=== PATIENT | female | born 1970 | race Caucasian/White ===

== ENCOUNTER 2020-12-15 08:20 | Outpatient (CLI) | payer OTHER, SELFPAY ==
[2020-12-15 09:26] LABS: Hematocrit 38.1 % (37.0-47.0); Hemoglobin 12.2 g/dL (12.0-15.0); Mean Corpuscular Hemoglobin 29.4 pg (26-34); Mean Corpuscular Volume 91.8 fl (80-100); Mean Platelet Volume 9.3 fl (7.4-10.4); Platelet Count Result 217 k/mm3 (150-375); Red Blood Count 4.15 M/mm3 (4.2-5.4); Red Cell Distribution Width 13.9 % (11.5-14.5); White Blood Count 5.2 K/mm3 (4.5-10.0)
[2020-12-15 09:40] LABS: Anion Gap 7 mmol/L (8-16); Blood Urea Nitrogen 11 mg/dL (7-17); Carbon Dioxide 26 mmol/L (22-30); Chloride 103 mmol/L (98-107); Cholesterol 168 mg/dL (0-200); Estimated Glomerular Filt Rate > 60; Glucose 81 mg/dL (65-110); HDL Direct 57 mg/dL; Potassium 4.4 mmol/L (3.4-5.0); Sodium 136 mmol/L (137-145); Triglycerides 73 mg/dL (<150)
[2020-12-15 09:50] LABS: LDL Cholesterol Direct 88 mg/dL
== END 2020-12-15 08:21 | disposition home or self-care (01) ==
PROVIDERS: PCP Family Medicine; Visit Provider Nurse Practitioner Family
DX: N92.0 Excessive and frequent menstruation with regular cycle (principal); Z13.220 Encounter for screening for lipoid disorders; Z13.29 Encounter for screening for other suspected endocrine disorder
CPT/HCPCS: 36415; 80048; 80061; 84443; 85027

== ENCOUNTER 2020-12-23 17:38 | Outpatient (CLI) | payer OTHER, SELFPAY ==
--- NOTE | ~2020-12-23 | MM_ITS ---
EXAMINATION: MM screening flavio BI w jatinder HISTORY: Screening TECHNIQUE: Craniocaudal and mediolateral oblique 3-D tomosynthesis images were obtained and synthetic 2-D images were generated. CAD analysis was submitted and interpreted. COMPARISON: 03/06/2012 BREAST PARENCHYMAL COMPOSITION: The breasts are heterogeneously dense, which may obscure small masses . FINDINGS: There is no evidence of suspicious mass, calcification, or architectural distortion to sugg est malignancy in either breast. There has been no suspicious interval change. IMPRESSION: 1. No mammographic evidence of malignancy. 2. Recommend routine screening mammography in one year. BI-RADS Category 1: Negative Reviewed, dictated and finalized at location A.
== END 2020-12-23 17:39 | disposition home or self-care (01) ==
LOC: ANHIMG 17:40
PROVIDERS: PCP Family Medicine; Visit Provider Nurse Practitioner Family
DX: Z12.31 Encounter for screening mammogram for malignant neoplasm of breast (principal)
CPT/HCPCS: 77063; 77067

== ENCOUNTER 2022-08-03 17:10 | Outpatient (CLI) | payer OTHER, SELFPAY ==
--- NOTE | ~2022-08-03 | MM_ITS ---
EXAMINATION: MM screening flavio BI w jatinder HISTORY: Screening TECHNIQUE: Craniocaudal and mediolateral oblique 3-D tomosynthesis images were obtained and synthetic 2-D images were generated. CAD analysis was submitted and interpreted. COMPARISON: 12/23/2020 BREAST PARENCHYMAL COMPOSITION: The breasts are heterogeneously dense, which may obscure small masses . FINDINGS: There is no evidence of suspicious mass, calcification, or architectural distortion to sugg est malignancy in either breast. There has been no suspicious interval change. IMPRESSION: 1. No mammographic evidence of malignancy. 2. Recommend routine screening mammography in one year. BI-RADS Category 1: Negative Reviewed, dictated and finalized at location A.
== END 2022-08-03 17:11 | disposition home or self-care (01) ==
LOC: ANHIMG 17:12
PROVIDERS: PCP Family Medicine; Visit Provider Physician Assistant Medical
DX: Z12.31 Encounter for screening mammogram for malignant neoplasm of breast (principal)
CPT/HCPCS: 77063; 77067

== ENCOUNTER 2023-08-17 10:21 | Outpatient (CLI) | payer OTHER, SELFPAY ==
--- NOTE | ~2023-08-17 | XR_ITS ---
XR lumbar spine 2-3V DATE: 08/17/2023 10:39 INDICATION: Low back pain; recent back strain TECHNIQUE: AP, lateral and coned lateral lumbosacral views COMPARISON: None FINDINGS: There is mild thoracolumbar dextroscoliosis. Normal alignment of the lumbar spine. No fracture or bone destruction or spondylolisthesis. There is minimal degenerative spurring. Lumbar levels interspaces appear well preserved. No spondylolisthesis of the lumbar pedicles are intact. The sacroiliac joints are unremarkable.. IMPRESSION: Minimal degenerative spurring Mild thoracolumbar dextroscoliosis Reviewed, dictated and finalized at location B.
== END 2023-08-17 10:22 | disposition home or self-care (01) ==
PROVIDERS: PCP Family Medicine; Visit Provider Nurse Practitioner Adult Health
DX: M54.50 Low back pain, unspecified (principal)
CPT/HCPCS: 72100

== ENCOUNTER 2023-10-11 11:00 | Outpatient (RCR) | payer OTHER, SELFPAY ==
--- NOTE | 2023-09-13 09:59 | OPREHPOC ---
Outpatient Therapy Plan of Care This is a Multidisciplinary Plan of Care that may contain components documented by all disciplines (PT, OT, and ST.) PT Problem 1 PT Problem #1 Knowledge Deficit PT Goal 1 Goal Stoddard with HEP Target Visit 4 PT Problem 2 PT Problem #2 Impaired Range of Motion PT Goal 1 Goal Demonstrate -15 degrees seamus with Hamstring 90/90 measure for reduced pull in posterior kinematic chain Target Visit 8 PT Goal 2 Goal Demonstrate minimal restriction in piriformis restriction bilaterally Target Visit 8 PT Problem 3 PT Problem #3 Impaired Strength PT Goal 1 Goal Improve seamus hip abduction strength to 4+/5 to improve lumbopelvic stability with ADLs Target Visit 8
--- NOTE | 2023-09-13 09:59 | PTOPEVAL1 ---
Assessment and note entered by Juwan Hogan, PT Evaluation Information Assessment Status Evaluation Diagnosis Low back pain, Lumbar radiculopathy Onset July 2023 Subjective Information Reports that she has orthotics that she typically wears but she was not wearing them for about 2 months. NSAIDs have helped in the past but she is really struggling right now. She had trouble putting weight on her legs. She did a round of prednisone. 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 When the prednisone wore off she noted increased pain once again. Turning and sit to stand caused her a lot of pain. She is more painful with increased activity, mornings are not. She is getting pain down both legs at this time that rarely goes to her feet. Pain is equal bilaterally. Reported Pain Level Pain Score 2: Self Report Assessment PT Clinical Summary Patient presents with signs and symptoms consistent with lumbar stenotic/extension based pain. Patient demonstrates poor hip mobility, lateral stabilization, and core stabilization. Will benefit from skilled therapy to address these deficits for pain reduction and functional mobility improvement. Plan of Care Interventions Electrical Stimulation,Hot Pack/Cold Pack,Manual Therapy,Mechanical Traction,Neuro Re-education, Therapeutic Activities,Therapeutic Exercise PT Services Indicated Yes Treatment Frequency and 2x/week for 8 visits Duration These treatments will address the objective and functional deficits as defined above. The patient will be advanced safely and appropriately in order for the patient to progress towards his/her prior level of function. Additional exercises will be introduced and as well as a comprehensive home exercise program upon discharge, if needed, ?to ensure carryover of functional gains achieved in the clinic. This treatment plan has been reviewed and agreement upon by the patient.
--- NOTE | 2023-10-11 11:52 | OPREHPOC ---
Outpatient Therapy Plan of Care This is a Multidisciplinary Plan of Care that may contain components documented by all disciplines (PT, OT, and ST.) PT Problem 1 PT Problem #1 Knowledge Deficit PT Goal 1 Goal Caroline with HEP Target Visit 4 Progress Met PT Problem 2 PT Problem #2 Impaired Range of Motion PT Goal 1 Goal Demonstrate -15 degrees seamus with Hamstring 90/90 measure for reduced pull in posterior kinematic chain Target Visit 8 Progress Met PT Goal 2 Goal Demonstrate minimal restriction in piriformis restriction bilaterally Target Visit 8 Progress Met PT Problem 3 PT Problem #3 Impaired Strength PT Goal 1 Goal Improve seamus hip abduction strength to 4+/5 to improve lumbopelvic stability with ADLs Target Visit 8 Progress Met
--- NOTE | 2023-10-11 11:52 | PTOPDC ---
Assessment and note entered by Juwan Hogan, PT Evaluation Information Assessment Status Discharge Diagnosis Low back pain, Lumbar radiculopathy Onset July 2023 Subjective Information Patient reports that she is feeling significantly better with pain and has a better understanding of hip disassociation and hip stabilization. Reports that she has no concerns with HEP. Plans to continue independently. Reported Pain Level Pain Score 0: Self Report Assessment PT Clinical Summary Patient met all goals for therapy and is suitable for discharge to [facility] at this time. Plan of Care PT Services Indicated D/C to [facility]
== END 2023-10-11 14:59 | disposition home or self-care (01) ==
LOC: ANHPT 11:00
PROVIDERS: PCP Family Medicine; Visit Provider Physician Assistant
DX: M54.50 Low back pain, unspecified (principal); M54.10 Radiculopathy, site unspecified
CPT/HCPCS: 97110; 97140; 97161; 97530

== ENCOUNTER 2024-02-19 09:39 | Outpatient (CLI) | payer OTHER, SELFPAY ==
--- NOTE | ~2024-02-19 | MR_ITS ---
MRI of the lumbar spine Clinical History: Radiculopathy Technique: Axial T2-weighted images, and sagittal T1-weighted, T2-weighted, and T2 fat-sat images wer e acquired. Findings: No fracture. Suggestion of minimal grade 1 anterolisthesis of L3 over L4. No bone marrow si gnal abnormality seen. At L1-L2 and L2-L3, there is no disc bulge or herniation. There are mild to moderate facet joint hype rtrophic changes at these levels. No spinal canal stenosis or neural foraminal narrowing at these lev els. At L3-L4, there is mild degenerative disc 9. There is diffuse disc bulge with severe facet arthropath y present. There is associated 1 cm left synovial cyst. These factors result in severe spinal canal s tenosis/thecal sac compression at this level. Neural foramina are preserved. At L4-L5, there is diffuse disc bulge with mild to moderate facet arthropathy. No central canal steno sis. There is moderate right neural foraminal narrowing. Left neural foramen preserved. At L5-S1, there is mild diffuse disc bulge and mild facet arthropathy. No central canal stenosis or d efinite neural foraminal narrowing. Paravertebral soft tissues are unremarkable. Impression: Advanced degenerative spondylosis at L3-L4, with associated 1 cm left synovial cyst at this level, re sulting in severe spinal canal stenosis/thecal sac compression. Please see details above. Additional mild degenerative changes overall, as above. Reviewed, dictated and finalized at [facility]. Impression: Advanced degenerative spondylosis at L3-L4, with associated 1 cm left synovial cyst at this level, resulting in severe spinal canal stenosis/thecal sac compre ssion. Please see details above. Additional mild degenerative changes overall, as above.
== END 2024-02-19 09:40 | disposition home or self-care (01) ==
PROVIDERS: PCP Family Medicine; Visit Provider Nurse Practitioner Adult Health
DX: M47.26 Other spondylosis with radiculopathy, lumbar region (principal); M51.369 Other intervertebral disc degeneration, lumbar region without mention of lumbar back pain or lower extremity pain
CPT/HCPCS: 72148

== ENCOUNTER 2024-04-08 08:35 | Outpatient (CLI) | payer OTHER, SELFPAY ==
[2024-04-08 08:50] LABS: Basophils Absolute Auto 0.1 K/mm3 (0.0-0.1); Basophils Percent Auto 1.6 % (0.2-1.2); Eosinophils Absolute Auto 0.1 K/mm3 (0-0.3); Eosinophils Percent Auto 3.8 % (0-4.4); Hematocrit 42.5 % (37.0-47.0); Hemoglobin 13.9 g/dL (12.0-15.0); Immature Granulocyte Absolute 0.01 K/mm3 (0.00-0.031); Immature Granulocyte Percent A 0.3 % (0-0.5); Lymphocytes Absolute Auto 1.27 K/mm3 (0.9-3.2); Lymphocytes Percent Auto 34.9 % (18.3-44.2); Mean Corpuscular HGB Conc 32.7 g/dl (32-36); Mean Corpuscular Hemoglobin 31.9 pg (26-34); Mean Corpuscular Volume 97.5 fl (80-100); Mean Platelet Volume 9.2 fl (7.4-10.4); Monocytes Absolute Auto 0.3 K/mm3 (0.1-0.6); Monocytes Percent Auto 9.3 % (2.6-8.5); Neutrophils Absolute Auto 1.8 K/mm3 (1.3-6.7); Neutrophils Percent Auto 50.1 % (45.5-73.1); Platelet Count Result 216 k/mm3 (150-375); Red Blood Count 4.36 M/mm3 (4.2-5.4); White Blood Count 3.6 K/mm3 (4.5-10.0)
[2024-04-08 09:12] LABS: Alanine Aminotransferase 17 U/L (6-35); Albumin Level 4.3 g/dL (3.5-5.1); Alkaline Phosphatase 47 U/L (38-126); Anion Gap 4 mmol/L (4-12); Aspartate Amino Transferase 26 U/L (14-36); Bilirubin,Total 0.7 mg/dL (0.2-1.3); Blood Urea Nitrogen 16 mg/dL (7-17); Calcium 9.1 mg/dL (8.4-10.2); Carbon Dioxide 30 mmol/L (22-30); Chloride 105 mmol/L (98-107); Cholesterol 195 mg/dL (0-200); Estimated Glomerular Filt Rate > 60; Glucose 84 mg/dL (65-110); HDL Direct 63 mg/dL; Potassium 4.6 mmol/L (3.4-5.0); Sodium 139 mmol/L (137-145); Triglycerides 74 mg/dL (<150)
[2024-04-08 09:30] LABS: LDL Cholesterol Direct 90 mg/dL
== END 2024-04-08 08:36 | disposition home or self-care (01) ==
PROVIDERS: PCP Family Medicine; Visit Provider Nurse Practitioner Adult Health
DX: M51.16 Intervertebral disc disorders with radiculopathy, lumbar region (principal); Z00.00 Encounter for general adult medical examination without abnormal findings; Z13.29 Encounter for screening for other suspected endocrine disorder
CPT/HCPCS: 36415; 80053; 80061; 84443; 85025

== ENCOUNTER 2024-12-30 15:05 | Outpatient (CLI) | payer OTHER, SELFPAY ==
--- NOTE | ~2024-12-30 | MM_ITS ---
EXAMINATION: MM screening flavio BI w jatinder HISTORY: Screening mammogram TECHNIQUE: Craniocaudal and mediolateral oblique 3-D tomosynthesis images were obtained and synthetic 2-D images were generated. CAD analysis was submitted and interpreted. COMPARISON: 08/03/2022, 12/23/2020 BREAST PARENCHYMAL COMPOSITION:Not Dense. There are scattered areas of fibroglandular density. FINDINGS: No suspicious mass, calcification, or architectural distortion are identified in either breast to suggest malignancy. There has been no suspicious interval change. IMPRESSION: No mammographic evidence of malignancy. Recommend routine screening mammography in one year. BI-RADS Category 1: Negative Reviewed, dictated and finalized at location .
== END 2024-12-30 15:06 | disposition home or self-care (01) ==
LOC: ANHFOHIMG 15:07
PROVIDERS: PCP Family Medicine; Visit Provider Family Medicine
DX: Z12.31 Encounter for screening mammogram for malignant neoplasm of breast (principal)
CPT/HCPCS: 77063; 77067

== ENCOUNTER 2025-03-13 12:02 | Outpatient (CLI) | payer OTHER, SELFPAY ==
--- NOTE | ~2025-03-13 | CT_ITS ---
EXAMINATION: CT lumbar spine wo con DATE: 03/13/2025 12:24 INDICATION: Lumbar synovial cyst. TECHNIQUE: Computed tomography (CT) of the lumbar spine was performed without intravenous contrast. Automated exposure control and iterative reconstruction technique were employed. The dose-length product was 756.57 mGy-cm. COMPARISON: Lumbar spine MRI 02/19/2024 FINDINGS: There is 3 mm anterolisthesis of L3 on L4. There is 6 degrees levocurvature of lumbar spine. There is mild chronic anterior wedging of T11 vertebral body. There is mildly decreased disc height at L3-L4, severely decreased disc height at L4-L5, and mildly decreased disc height at L5-S1. The following disc levels are specifically discussed: L1-L2: The disc does not extend beyond the endplate margin. There is moderate bilateral facet joint osteoarthritis. There is no neural foraminal stenosis. There is no central canal stenosis. L2-L3: The disc is bulging. There is severe bilateral facet joint osteoarthritis. There is mild bilateral neural foraminal stenosis. There is mild central canal stenosis. L3-L4: The disc is bulging. There is severe bilateral facet joint osteoarthritis. There is a synovial cyst from left facet joint in the epidural space. There is mild bilateral neural foraminal stenosis. There is moderate central canal stenosis. L4-L5: The disc is bulging. There is severe bilateral facet joint osteoarthritis. There is mild bilateral neural foraminal stenosis. There is mild central canal stenosis. L5-S1: The disc is bulging. There is severe bilateral facet joint osteoarthritis. There is mild bilateral neural foraminal stenosis. There is mild central canal stenosis. IMPRESSION: 1. Severe lumbar spondylosis, stable from 02/19/2024. Reviewed, dictated and finalized at location E.
== END 2025-03-13 12:03 | disposition home or self-care (01) ==
LOC: ANHIMG 12:03
PROVIDERS: PCP Family Medicine
DX: M47.816 Spondylosis without myelopathy or radiculopathy, lumbar region (principal); M71.38 Other bursal cyst, other site
CPT/HCPCS: 72131

== ENCOUNTER 2025-04-03 10:03 | Outpatient (CLI) | payer OTHER, SELFPAY ==
--- OUTSIDE RECORDS SUMMARY | 2025-04-03 10:06 | XMS_ITS | Clinical Summary ---
Author Organization [facility] A Address [address] [place] [address] Care Team Providers Care Grommet Worker Name Role Phone Sj Gr MD Primary Care Provider + [phone] Allergies No known active allergies Medications meloxicam (MOBIC) 15 mg tablet Take 1 tablet (15 mg total) by mouth daily 09/16/2024 Active predniSONE (DELTASONE) 10 mg tablet TAKE 3 TABLETS BY MOUTH DAILY FOR 5 DAYS 09/19/2024 Active ibuprofen (ADVIL,MOTRIN) 800 mg tablet Take 1 tablet (800 mg total) by mouth daily as needed for pain Active Active Problems No known active problems Encounters Date Type Department Care Team Description 03/27/2025 Telephone [facility] [place] [address], [address] [place] [address] Tisha Espino RN PMC Intake Assessment 03/25/2025 2:40 PM POWER CUTTING MACHINE OPERATOR Office Visit [facility] Medicine Neurosurgery [address] [place] [address] 4 [address] [place] [address] Cedric Corley MD Synovial cyst of lumbar spine (Primary Dx) 03/25/2025 Orders Only [facility] Medicine Neurosurgery [address] [place] [address] 4 [address] [place] [address] Cedric Corley MD Synovial cyst of lumbar spine (Primary Dx) 03/24/2025 9:26 AM POWER CUTTING MACHINE OPERATOR - 03/24/2025 11:59 PM POWER CUTTING MACHINE OPERATOR Hospital Encounter [facility] [address] [place] [address] Discharge Disposition: Discharge to home or self care 03/09/2025 2:30 PM CDT Office Visit [facility] [address] [place] [address] Hermes Hannah PA Synovial cyst of lumbar spine (Primary Dx) 02/09/2025 Telephone [facility] Radiology [address] [place] [address] Chloe James RN 01/20/2025 Telephone Radiology [address] [place] [address] Tong Calloway MD 01/19/2025 10:30 AM CDT Office Visit [facility] [address] [place] [address] Hermes Hannah PA Synovial cyst of lumbar spine (Primary Dx) 01/19/2025 9:42 AM CDT - 01/19/2025 11:59 PM CDT Hospital Encounter [facility] - Imaging [address] [place] [id number] Low back pain, unspecified back pain laterality, unspecified chronicity, unspecified whether sciatica present Discharge Disposition: Discharge to home or self care from Last 3 Months Surgical History Surgery Date Site/Laterality Comments OTHER SURGICAL HISTORY 05/14/1988 - 05/13/1989 Right right ACL repair Family History Medical History Relation Name Comments Diabetes Father Diabetes Maternal Grandmother Relation Name Status Comments Father Maternal Grandmother Social History Tobacco Use Types Packs/Day Years Used Date Smoking Tobacco: Never Smokeless Tobacco: Never Tobacco Cessation:Counseling Given: No Alcohol Use Standard Drinks/Week Comments Never 0 (1 standard drink = 0.6 oz pur e alcohol) AUDIT-C Answer Date Recorded Q1: How often do you have a drink containing alcohol? Never 01/19/2025 Q2: How many drinks containi ng alcohol do you have on a typical day when you are drinking? Patient does not drink Q3: How often do you have si x or more drinks on one occasion? Never 01/19/2025 Comments Unknown Sex and Gender Information Value Date Recorded Sex Assigned at Not on file Legal Sex Female 10:55 AM POWER CUTTING MACHINE OPERATOR Gender Identity Not on file Sexual Orientation Not on file Last Filed Vital Signs Vital Sign Reading Time Taken Comments Blood Pressure 106/58 03/09/2025 2:26 PM CDT Pulse 86 03/09/2025 2:26 PM CDT Temperature - - Respiratory Rate - - Oxygen Saturation 98% 03/09/2025 2:26 PM CDT Inhaled Oxygen Concentration - - Weight 74.4 kg (164 lb) 03/25/2025 3:08 PM POWER CUTTING MACHINE OPERATOR Height 172.7 cm (5' 8) 03/25/2025 3:08 PM POWER CUTTING MACHINE OPERATOR Body Mass Index 24.94 03/25/2025 3:08 PM POWER CUTTING MACHINE OPERATOR Plan of Treatment Health Maintenance Due Date Last Done Comments Breast Cancer Screening-Mammogram 1970 Cervical Cancer Screening 1970 Colon Cancer Screening-Colonoscopy 1970 Depression Screening 1970 Hepatitis C Screening 1970 DTaP/Tdap/Td Vaccine (1 - Tdap) 1981 Hepatitis B Screening 1988 Regular Well Visit/Exam 18-64 1988 Zoster Vaccine (1 of 2) 2020 Covid-19 Vaccine ( - 2024-2 6 season) 2025 02/18/2021, 05/21/2020, 04/30/2020 Influenza Vaccine (#1) 2025 , 03/09/2023 Pneumococcal vaccine <65 Aged Out No longer eligible based on patient's age to complete this topic Procedures Procedure Name Priority Date/Time Associated Diagnosis Comments NEURO CT OUTSIDE REFERENCE Routine 03/24/2025 9:26 AM POWER CUTTING MACHINE OPERATOR XR SCOLIOSIS 6 OR MORE VIEWS Schedule Routine, Read Routine (OP Routine) 01/19/2025 10:11 AM CDT Low back pain, unspecified back pain laterality, unspecified chronicity, unspecified whether sciatica present from Last 3 Months Results * Neuro CT Outside Reference (03/24/2025 9:26 AM POWER CUTTING MACHINE OPERATOR) Impressions RAD_PACS_[facility] - 03/24/2025 9:26 AM POWER CUTTING MACHINE OPERATOR These images are for Reference purposes only and have not been reviewed by [facility]. There will be no report generated by a [facility] Radiologist. Narrative RAD_PACS_[facility] - 03/24/2025 9:26 AM POWER CUTTING MACHINE OPERATOR EXAMINATION: Images For Reference Purposes Only us Hermes REED IMG CT PROCEDURES Fin al Result RAD_PACS_[facility] * XR Scoliosis 6 or More Views (01/19/2025 10:11 AM CDT) Anatomical Region Laterality Modality Spine N/A Digital Radiogra phy 01/19/2025 10:2 7 AM CDT Impressions 01/19/2025 10:27 AM CDT There is mild reversal normal cervical lordosis. There is slight dextrocurvature along the mid thoracic spine, levocurvature along the lower thoracic spine and dextrocurvature along the lumbar spine. There is minimal anterolisthesis at L3-4. There is loss of disc space height at multiple levels, for example at C6-7, T5-6 and T6-7, as well as at L4-5 and L5-S1. There is no compression deformity. There is facet degenerative change at L4-5 and L5-S1. There is no abnormal translation with flexion or extension in the lumbar spine. The visualized sacrum and bony pelvis are intact. The cardiomediastinal silhouette is normal in size. The lungs are clear. The bowel gas pattern is nonspecific and nonobstructive. Hardware is present along the distal right femur and proximal tibia. There is mild medial compartment narrowing in both knees. Electronically signed by: Kale Flores M.D. Narrative 01/19/2025 10:27 AM CDT XR SCOLIOSIS 6 OR MORE VIEWS: 01/19/2025 9:45 AM CLINICAL INDICATION: Low back pain. COMPARISON: MRI lumbar spine dated 02/19/2024. Procedure Note Kale Flores MD - 01/19/2025 XR SCOLIOSIS 6 OR MORE VIEWS: 01/19/2025 9:45 AM CLINICAL INDICATION: Low back pain. COMPARISON: MRI lumbar spine dated 02/19/2024. IMPRESSION: There is mild reversal normal cervical lordosis. There is slight dextrocurvature along the mid thoracic spine, levocurvature along the lower thoracic spine and dextrocurvature along the lumbar spine. There is minimal anterolisthesis at L3-4. There is loss of disc space height at multiple levels, for example at C6-7, T5-6 and T6-7, as well as at L4-5 and L5-S1. There is no compression deformity. There is facet degenerative change at L4-5 and L5-S1. There is no abnormal translation with flexion or extension in the lumbar spine. The visualized sacrum and bony pelvis are intact. The cardiomediastinal silhouette is normal in size. The lungs are clear. The bowel gas pattern is nonspecific and nonobstructive. Hardware is present along the distal right femur and proximal tibia. There is mild medial compartment narrowing in both knees. Electronically signed by: Kale Flores M.D. Gerry REED IMG XR PROCEDURES Final R esult from Last 3 Months Insurance [facility] Care Teams Grommet Worker Relationship Specialty Start Date End Date Sj Gr MD [address] [address] PCP - General Family Medicine 10/23/24
[2025-04-03 10:34] LABS: Hematocrit 40.9 % (37.0-47.0); Hemoglobin 13.7 g/dL (12.0-15.0); Immature Granulocyte Percent A 0.3 % (0-0.5); Lymphocytes Absolute Auto 1.29 K/mm3 (0.9-3.2); Mean Corpuscular HGB Conc 33.5 g/dl (32-36); Mean Corpuscular Hemoglobin 31.5 pg (26-34); Mean Corpuscular Volume 94.0 fl (80-100); Nucleated Red Blood Cells Absolute Auto 0.000 K/mm3 (0.0-0.012); Nucleated Red Blood Cells Perc 0.0 % (0.0-0.2); Platelet Count Result 206 k/mm3 (150-375); Red Blood Count 4.35 M/mm3 (4.2-5.4); White Blood Count 3.3 K/mm3 (4.5-10.0)
[2025-04-03 10:47] LABS: Alanine Aminotransferase 15 U/L (6-35); Albumin Level 4.6 g/dL (3.5-5.1); Alkaline Phosphatase 54 U/L (38-126); Anion Gap 6 mmol/L (4-12); Aspartate Amino Transferase 27 U/L (14-36); Bilirubin,Total 1.0 mg/dL (0.2-1.3); Blood Urea Nitrogen 19 mg/dL (7-17); Calcium 9.7 mg/dL (8.4-10.2); Carbon Dioxide 28 mmol/L (22-30); Chloride 102 mmol/L (98-107); Cholesterol 196 mg/dL (0-200); Estimated Glomerular Filt Rate > 60; Glucose 80 mg/dL (65-110); HDL Direct 59 mg/dL; Potassium 4.1 mmol/L (3.4-5.0); Sodium 136 mmol/L (137-145); Total Protein 7.7 g/dL (6.3-8.2); Triglycerides 64 mg/dL (<150)
[2025-04-03 11:22] LABS: Thyroid Stimulating Hormone 1.140 uIU/mL (0.465-4.680)
[2025-04-07 07:09] LABS: ANA by IFA Rfx Titer/Pattern Positive (.)
== END 2025-04-03 10:04 | disposition home or self-care (01) ==
LOC: ANHLAB 10:04
PROVIDERS: PCP Family Medicine; Visit Provider Physician Assistant Medical
DX: F41.9 Anxiety disorder, unspecified (principal); M25.50 Pain in unspecified joint; R20.8 Other disturbances of skin sensation; M19.049 Primary osteoarthritis, unspecified hand; E78.5 Hyperlipidemia, unspecified
CPT/HCPCS: 36415; 80053; 80061; 84443; 85025; 85652; 86038; 86430

== ENCOUNTER 2025-04-06 16:55 | Outpatient (CLI) | payer OTHER, SELFPAY ==
--- NOTE | ~2025-04-06 | XR_ITS ---
EXAMINATION: XR hand BI arthritis min 3V, 04/06/2025 16:55 [facility] HISTORY: M19.049 - Primary osteoarthritis, unspecified hand COMPARISON: No comparisons available. Findings: No acute fracture or malalignment. Minimal degenerative changes of the distal interphalangeal joints, no erosions are identified Soft tissues unremarkable. Impression: No acute fracture or malalignment. Reviewed, dictated and finalized at location P. [facility] Impression: No acute fracture or malalignment.
--- OUTSIDE RECORDS SUMMARY | 2025-04-06 18:34 | XMS_ITS | Clinical Summary ---
Author Organization [facility] A Address [address] [place] [address] Care Team Providers Care Dry Kiln Worker Name Role Phone Sj Gr MD Primary Care Provider + [phone] Allergies No known active allergies Medications meloxicam [...] Description 03/27/2025 Telephone [facility] [place] [address], [address] [place] [address] Tisha Espino RN PMC Intake Assessment 03/25/2025 2:40 PM OPENSTACK CLOUD CONSULTING ARCHITECT Office Visit [facility] Medicine Neurosurgery [address] [place] [address] 4 [address] [place] [address] Cedric Corley MD Synovial cyst of lumbar spine (Primary Dx) 03/25/2025 Orders Only [facility] Medicine Neurosurgery [address] [place] [address] 4 [address] [place] [address] Cedric Corley MD Synovial cyst of lumbar spine (Primary Dx) 03/24/2025 9:26 AM OPENSTACK CLOUD CONSULTING ARCHITECT - 03/24/2025 11:59 PM OPENSTACK CLOUD CONSULTING ARCHITECT Hospital Encounter [facility] [address] [place] [address] Discharge Disposition: Discharge to home or self care 03/09/2025 2:30 PM CDT Office Visit [facility] [address] [place] [address] Hermes Hannah PA Synovial cyst of lumbar spine (Primary Dx) 02/09/2025 Telephone [facility] Radiology [address] [place] [address] Chloe James RN 01/20/2025 Telephone Radiology 1 [place] [address] Tong Calloway MD 01/19/2025 10:30 AM CDT Office Visit [facility] [address] [place] [address] Hermes Hannah PA Synovial cyst of lumbar spine (Primary Dx) 01/19/2025 9:42 AM CDT - 01/19/2025 11:59 PM CDT Hospital Encounter [facility] - Imaging [address] [place] [phone] Low back pain, unspecified back pain laterality, [...] on file Legal Sex Female 10:55 AM OPENSTACK CLOUD CONSULTING ARCHITECT Gender Identity Not on file Sexual Orientation Not on file Last Filed Vital Signs Vital Sign [place] Time Taken Comments Blood Pressure 106/58 03/09/2025 2:26 PM CDT Pulse 86 03/09/2025 2:26 PM CDT Temperature - - Respiratory Rate - - Oxygen Saturation 98% 03/09/2025 2:26 PM CDT Inhaled Oxygen Concentration - - Weight 74.4 kg (164 lb) 03/25/2025 3:08 PM OPENSTACK CLOUD CONSULTING ARCHITECT Height 172.7 cm (5' 8) 03/25/2025 3:08 PM OPENSTACK CLOUD CONSULTING ARCHITECT Body Mass Index 24.94 03/25/2025 3:08 PM OPENSTACK CLOUD CONSULTING ARCHITECT Plan of Treatment Health Maintenance Due Date [...] CT OUTSIDE REFERENCE Routine 03/24/2025 9:26 AM OPENSTACK CLOUD CONSULTING ARCHITECT XR SCOLIOSIS 6 OR MORE VIEWS Schedule Routine, Read Routine (OP Routine) 01/19/2025 10:11 AM CDT Low back pain, unspecified back pain laterality, unspecified chronicity, unspecified whether sciatica present from Last 3 Months Results * Neuro CT Outside Reference (03/24/2025 9:26 AM OPENSTACK CLOUD CONSULTING ARCHITECT) Impressions RAD_PACS_[facility] - 03/24/2025 9:26 AM OPENSTACK CLOUD CONSULTING ARCHITECT These images are for Reference purposes only and have not been reviewed by [facility]. There will be no report generated by a [facility] Radiologist. Narrative RAD_PACS_[facility] - 03/24/2025 9:26 AM OPENSTACK CLOUD CONSULTING ARCHITECT EXAMINATION: Images For Reference Purposes Only us [...] R esult from Last 3 Months Insurance [facility] Care Teams Dry Kiln Worker Relationship Specialty Start Date End Date Sj Gr MD [address] [place] [address] PCP - General Family Medicine 10/23/24
== END 2025-04-06 16:56 | disposition home or self-care (01) ==
PROVIDERS: PCP Family Medicine; Visit Provider Physician Assistant Medical
DX: M19.049 Primary osteoarthritis, unspecified hand (principal)
CPT/HCPCS: 73130

== ENCOUNTER 2025-05-05 08:30 | Outpatient (CLI) | payer OTHER, SELFPAY ==
--- OUTSIDE RECORDS SUMMARY | 2025-05-05 08:35 | XMS_ITS | Clinical Summary ---
Author Organization [facility] A Address [address] [place] [address] Care Team Providers Care Financial Services Specialist Name Role Phone Sj Gr MD Primary Care Provider [phone] Allergies No known active allergies Medications ibuprofen (ADVIL,MOTRIN) 800 mg tablet Take 600 mg by mouth 3 (three) times a day as needed for pain Active acetaminophen 500 mg tablet Take 1 tablet (500 mg total) by mouth 2 (two) times a day as needed for pain Active meloxicam (MOBIC) 15 mg tablet Take 1 tablet (15 mg total) by mouth daily 5 04/28/20 25 Discontinu ed(Therapy completed) predniSONE (DELTASONE) 10 mg tablet TAKE 3 TABLETS BY MOUTH DAILY FOR 5 DAYS 5 04/28/20 25 Discontinu ed(Therapy completed) Active Problems No known active problems Encounters Date Type Department Care Team Description 04/28/2025 7:45 AM CLINICAL SERVICES MANAGER - 04/28/2025 11:59 PM CLINICAL SERVICES MANAGER Hospital Encounter [facility] [address] [place] [address] Pradip Gore MD Lumbar radiculopathy (Primary Dx); Bilateral low back pain with bilateral sciatica, unspecified chronicity Discharge Disposition: Discharge to home or self care 03/27/2025 Telephone [facility] at [facility] [address] [place] [phone] Tisha Espino RN PMC Intake Assessment 03/25/2025 2:40 PM CLINICAL SERVICES MANAGER Office Visit [facility] Medicine Neurosurgery [address] [place] [phone] Cedric Corley MD Synovial cyst of lumbar spine (Primary Dx) 03/25/2025 Orders Only [facility] Medicine Neurosurgery [address] [place] [phone] Cedric Corley MD Synovial cyst of lumbar spine (Primary Dx) 03/24/2025 9:26 AM CLINICAL SERVICES MANAGER - 03/24/2025 11:59 PM CLINICAL SERVICES MANAGER Hospital Encounter [facility] [address] [place] [address] Discharge Disposition: Discharge to home or self care 03/09/2025 2:30 PM CDT Office Visit [facility] with [facility] Physicians [address] [place] [address] Hermes Hannah PA Synovial cyst of lumbar spine (Primary Dx) 02/09/2025 Telephone [facility] Radiology [address] [place] [address] Chloe James RN from Last 3 Months Surgical History Surgery [...] you have a drink containing alcohol? Never 04/28/2025 Q2: How many drinks containi ng alcohol do you have on a typical day when you are drinking? Patient does not drink Q3: How often do you have si x or more drinks on one occasion? Never 04/28/2025 Comments Unknown Sex and Gender Information Value Date Recorded Sex Assigned at Not on file Legal Sex Female 10:55 AM CLINICAL SERVICES MANAGER Gender Identity Not on file Sexual Orientation Not on file Last Filed Vital Signs Vital Sign Reading Time Taken Comments Blood Pressure 113/50 04/28/2025 8:03 AM CLINICAL SERVICES MANAGER 66 Pulse 77 04/28/2025 8:03 AM CLINICAL SERVICES MANAGER Temperature 36.6 C (97.8 F) 04/28/2025 8:03 AM CLINICAL SERVICES MANAGER Respiratory Rate 16 04/28/2025 8:03 AM CLINICAL SERVICES MANAGER Oxygen Saturation 97% 04/28/2025 8:03 AM CLINICAL SERVICES MANAGER ra Inhaled Oxygen Concentration - - Weight 70.3 kg (155 lb) 04/28/2025 8:03 AM CLINICAL SERVICES MANAGER Height 172.7 cm (5' 8) 04/28/2025 8:03 AM CLINICAL SERVICES MANAGER Body Mass Index 23.57 04/28/2025 8:03 AM CLINICAL SERVICES MANAGER Plan of Treatment Health Maintenance Due Date Last Done Comments Breast Cancer Screening-Mammogram 1970 Cervical Cancer Screening 1970 Colon Cancer Screening-Colonoscopy 1970 Depression Screening 1970 Hepatitis C Screening 1970 DTaP/Tdap/Td Vaccine (1 - Tdap) 1981 Hepatitis B Screening 1988 Regular Well Visit/Exam 18-64 1988 Zoster Vaccine (1 of 2) 2020 Covid-19 Vaccine ( - 2024-2 6 season) 2025 02/18/2021, 05/21/2020, 04/30/2020 Influenza Vaccine Completed 02/23/2025, 02/22/2024, 03/09/2023 Pneumococcal vaccine <65 Aged Out No longer eligible based on patient's age to complete this topic Goals Goal Patient Goal Type Associated Problems Recent Progress Patient-Stated? Author CCM Chronic Pain Care Plan Chronic Care Management Keyla Zamora, RN Note: Problem: Chronic Pain Goals: 1. Minimize further functional decline 2. Maximize quality of life 3. Control pain Strategies: - Activity/exercise program recommendation - Conservative stepwise pain medicine strategy with multi-disciplinary approach - Recommend healthy lifestyle strategies and compensatory methods as needed Procedures Procedure Name Priority Date/Time Associated Diagnosis Comments NEURO CT OUTSIDE REFERENCE Routine 03/24/2025 9:26 AM CLINICAL SERVICES MANAGER from Last 3 Months Results * Neuro CT Outside Reference (03/24/2025 9:26 AM CLINICAL SERVICES MANAGER) Impressions [facility] - 03/24/2025 9:26 AM CLINICAL SERVICES MANAGER These images are for Reference purposes only and have not been reviewed by [facility] Radiology. There will be no report generated by a [facility] Radiologist. Narrative [facility] - 03/24/2025 9:26 AM CLINICAL SERVICES MANAGER EXAMINATION: Images For Reference Purposes Only us Hermes REED IMG CT PROCEDURES Fin al Result [facility] from Last 3 Months Insurance [facility] Care Teams Financial Services Specialist Relationship Specialty Start Date End Date Sj Gr MD [address] [place], [place] [id number] PCP - General Family Medicine 10/23/24
--- OUTSIDE RECORDS SUMMARY | 2025-05-05 08:35 | XMS_ITS | Clinical Summary ---
Author Organization [facility] Address [address] [place] [address] Care Team Providers Care Mosaic Layer Name Role Phone Sj Gr MD Primary Care Provider [phone] Source Comments [facility],non-owned Affiliates and Associated Physician Practices is amultiple site organization consisting of ambulatory clinics and hospital sitesin [place], [place], [place] and [place]. This disclosure is being madepursuant to the Care Everywhere program and may not contain all information available regarding this patient. Last updated 18.[facility] Encounters Date Type Department Care Team Description 04/14/2025 Transcribe Orders [facility] Rheumatology [address], [address] [place] [address] Group, [facility] Medical Primary osteoarthritis of right hand ; Primary osteoarthritis of left hand; Polyarthralgia from Last 3 Months Social History Tobacco Use Types Packs/Day Years Used Date Smoking Tobacco: Never Assessed Comments Unknown Sex and Gender Information Value Date Recorded Sex Assigned at Not on file Legal Sex Female 9:51 AM DAIRY HAND Gender Identity Not on file Sexual Orientation Not on file Plan of Treatment Upcoming Encounters Date Type Department Care Team (Late st Contact Info) Description 05/26/2025 8:40 AM DAIRY HAND Office Visit [facility] Rheumatology [address], [address] [place] [address] Polo Collins DO [address] [place] [address] Health Maintenance Due Date Last Done Comments COLOGUARD (AGES 45-75) - COL ON CA SCREENING 1970 COLON MONITORING 1970 COLONOSCOPY - COLON CA SCREENING 1970 CT COLONOGRAPHY - COLON CA SCREENING 1970 Colorectal Cancer Screening 1970 FIT - COLON CA SCREENING 1970 FLEX SIG - COLON CA SCREENING 1970 LIPID TESTING 1970 MAMMOGRAM 1970 HIV SCREENING 1985 HEPATITIS C SCREENING 10/20/1988 DTAP/TDAP/TD VACCINES (1 - Tdap) 1989 HEPATITIS B VACCINE (1 of 3 - 19+ 3-dose series) 1989 PAP SMEAR 10/26/1991 PNEUMOCOCCAL VACCINE 50+ (1 of 1 - PCV) 2020 ZOSTER VACCINE (1 of 2) 2020 DEPRESSION SCREENING 05/14/2024 COVID-19 VACCINE (1 - 2024-2 6 season) 2025 INFLUENZA VACCINE (#1) 2025 HIB VACCINE Aged Out No longer eligi ble based on patient's age to complete this topic HPV VACCINE Aged Out No longer eligi ble based on patient's age to complete this topic MENINGOCOCCAL (Group B) VACC INE SHARED DECISION-MAKING Aged Out No longer eligibl e based on patient's age to complete this topic MENINGOCOCCAL GROUPS A/C/Y/W VACCINE Aged Out No longer eligible b ased on patient's age to complete this topic Care Teams Mosaic Layer Relationship Specialty Start Date End Date Sj Gr MD [address] [place] [address] PCP - General Family Medicine 04/14/25
[2025-05-05 08:45] LABS: Hematocrit 42.0 % (37.0-47.0); Hemoglobin 14.1 g/dL (12.0-15.0); Immature Granulocyte Percent A 0.0 % (0-0.5); Lymphocytes Absolute Auto 1.23 K/mm3 (0.9-3.2); Mean Corpuscular HGB Conc 33.6 g/dl (32-36); Mean Corpuscular Hemoglobin 31.8 pg (26-34); Mean Corpuscular Volume 94.6 fl (80-100); Nucleated Red Blood Cells Absolute Auto 0.000 K/mm3 (0.0-0.012); Nucleated Red Blood Cells Perc 0.0 % (0.0-0.2); Platelet Count Result 194 k/mm3 (150-375); Red Blood Count 4.44 M/mm3 (4.2-5.4); White Blood Count 3.1 K/mm3 (4.5-10.0)
[2025-05-05 09:04] LABS: Anion Gap 6 mmol/L (4-12); Blood Urea Nitrogen 20 mg/dL (7-17); Calcium 9.7 mg/dL (8.4-10.2); Carbon Dioxide 28 mmol/L (22-30); Chloride 106 mmol/L (98-107); Estimated Glomerular Filt Rate > 60; Glucose 85 mg/dL (65-110); Potassium 4.4 mmol/L (3.4-5.0); Sodium 140 mmol/L (137-145)
== END 2025-05-05 08:31 | disposition home or self-care (01) ==
LOC: ANHLAB 08:32
PROVIDERS: PCP Family Medicine; Visit Provider Physician Assistant Medical
DX: D72.819 Decreased white blood cell count, unspecified (principal); N28.9 Disorder of kidney and ureter, unspecified
CPT/HCPCS: 36415; 80048; 85025